=== PATIENT | female | born 1935 | race Caucasian/White ===

== ENCOUNTER 2019-05-15 09:15 | Inpatient (IN) | payer OTHER, MEDICAID ==
[~2019-05-15] VITALS: Ht 152.4 cm; Wt 52.6 kg
[2019-05-15 09:20] VITALS: BP_SYST 147
--- NOTE | 2019-05-15 09:25 | NUR ---
Patient to ER bed 7 to gown for evaluation. Side rails up. Report given to YANCI VACA.
--- NOTE | 2019-05-15 09:34 | NUR ---
ER Dr. Kan at bedside examining patient.
[2019-05-15] MEDS ORDERED: NS 500 ML IV ONE (09:45)
--- NOTE | 2019-05-15 09:45 | NUR ---
Pt complaining of n/v accompanied by abdominal pain 8/10 and dizziness for 4 days. Pt is AA/O x 4, speaks Welsh, and is cooperative.
[2019-05-15] MEDS ORDERED: ONDANSETRON HCL 4 MG/2 ML VIAL IVP ONE (10:15)
[2019-05-15] MEDS ORDERED: MORPHINE 2 MG/ML INJ. SYRINGE IVP ONE (10:15)
[2019-05-15] MEDS ORDERED: PANTOPRAZOLE SODIUM 40 MG/VIAL (PROTONIX) IVP ONE (10:15)
[2019-05-15 11:02] LABS: BASOPHILS % (AUTO) 0.4 % (0.0-2.0); EOSINOPHILS % (AUTO) 0.3 % (0.0-4.0); HEMATOCRIT 34.2 % (36-48); HEMOGLOBIN 12.1 g/dL (12.0-16.0); LYMPHOCYTES # (AUTO) 0.9 K/uL (1.0-5.5); LYMPHOCYTES % (AUTO) 12.3 % (20.5-51.5); MEAN CORPUSCULAR HEMOGLOBIN 31 pg (27-31); MEAN CORPUSCULAR HGB CONC 35 % (32-36); MEAN CORPUSCULAR VOLUME 89 fL (79.0-98.0); MONOCYTES # (AUTO) 0.6 K/uL (0.0-1.0); MONOCYTES % (AUTO) 7.6 % (1.7-9.3); NEUTROPHILS # (AUTO) 5.8 K/uL (1.8-7.7); NEUTROPHILS % (AUTO) 79.4 % (40.0-70.0); PLATELET COUNT (AUTO) 262 K/uL (130-430); RED BLOOD CELL COUNT(AUTO) 3.85 MIL/uL (4.2-6.2); RED CELL DISTRIBUTION WIDTH 14.1 % (9.0-15.0); WHITE BLOOD COUNT (AUTO) 7.3 K/uL (4.8-10.8)
[2019-05-15] MEDS ORDERED: MORPHINE 2 MG/ML INJ. SYRINGE ONE (11:11)
[2019-05-15 11:13] LABS: ANION GAP 3 (5-15); CALCIUM 8.7 mg/dL (8.4-11.0); CREATININE 1.27 mg/dL (0.55-1.30); GLUCOSE 128 mg/dL (70-99); SODIUM SERUM 120 mmol/L (136-145); UREA NITROGEN, BLOOD 14 mg/dL (8-21)
[2019-05-15 11:14] LABS: PROTHROMBIN TIME 9.7 SECS (9.5-12.5)
[2019-05-15 11:29] LABS: ALANINE AMINOTRANSFERASE 25 U/L (12-78); ALBUMIN 3.3 g/dL (3.4-4.8); ASPARTATE AMINOTRANSFERASE 32 U/L (10-37); LIPASE 216 U/L (73-393); TOTAL BILIRUBIN 0.7 mg/dL (0.0-1.0)
[2019-05-15] MEDS ORDERED: KCL 20 mEq in 100 mL (PREMIX) 100 ML IV ONE (11:30)
[2019-05-15] MEDS ORDERED: ASPIRIN 325 MG TABLET PO ONE (11:30)
[2019-05-15] MEDS ORDERED: NACL 0.9% 1,000 ML IV ONE (11:30)
[2019-05-15] MEDS ORDERED: KCL 10 mEq in 50 mL (PREMIX) 50 ML IV ONE (11:30)
[2019-05-15 11:31] LABS: CHLORIDE 80 mmol/L (98-107)
[2019-05-15 12:22] LABS: BILIRUBIN,URINE NEGATIVE (NEGATIVE); CLARITY/URINE CLEAR (CLEAR); COLOR,URINE YELLOW (YELLOW); GLUCOSE,URINE NEGATIVE (NEGATIVE); KETONES,URINE NEGATIVE (NEGATIVE); LEUKOCYTE ESTERASE ,URINE TRACE (NEGATIVE); NITRITE, URINE NEGATIVE (NEGATIVE); PROTEIN URINE 2+ (NEGATIVE); UROBILINOGEN,URINE 0.2 (0.2-1.0)
--- NOTE | 2019-05-15 12:25 | NUR ---
Potassium Chloride 10mEq/50mL IVPB administered @ 50mL/hr. Pt assisted to position of comfort.
[2019-05-15 12:27] LABS: BLOOD, URINE TRACE (NEGATIVE)
[2019-05-15 12:37] LABS: BACTERIA,URINE RARE /HPF (None Seen)
[2019-05-15] MEDS ORDERED: LEVOFLOXACIN 500 MG/D5W 100 ML IV ONE (12:45)
[2019-05-15] MEDS ORDERED: hydrALAZINE HCL 20 MG/ML VIAL IVP ONE (13:00)
--- NOTE | 2019-05-15 13:01 | NUR ---
Dr. Scruggs (admitting MD) at bedside
[2019-05-15] MEDS ORDERED: LEVO88TA5 PO (13:09)
[2019-05-15] MEDS ORDERED: ONDA4TAB5 PO (13:09)
[2019-05-15] MEDS ORDERED: HYDR25TA4 PO (13:09)
[2019-05-15] MEDS ORDERED: PRO40 PO (13:09)
[2019-05-15] MEDS ORDERED: AMLO5TAB4 PO (13:09)
--- NOTE | 2019-05-15 13:23 | NUR ---
ADMISSION NOTE Received patient from ER via gurney. Patient admitted with diagnosis of HYPONATREMIA. Patient is awake, alert, oriented X 3. Patient oriented to hospital room, call light, toileting, pain management and safety-teach back done. Patient informed that AZAM will be HER nurse and that their room number is 111A. Personal belongings checked and Belongings List documented. Call light within reach.
[2019-05-15] MEDS ORDERED: cefTRIAXone 1 GM in D5W 50 ML IV ONE (13:30)
[2019-05-15] MEDS ORDERED: ONDANSETRON 4 MG ODT TAB PO SCH (13:30)
[2019-05-15] MEDS ORDERED: FAMOTIDINE PF 20 MG/2 ML VIAL IVP ONE (13:30)
--- NOTE | 2019-05-15 13:30 | NUR ---
opening note Patient resting in bed at this time, A/ox4, no complaints of pain. No SOB. Iv patent, intact, and infusing fluids as ordered. no adverse side effects. On safety and aspiration precautions, HOB kept elevated, bed alarm on, 3 side rails up, call light within reach. patient in stable condition. Will continue to monitor.
[2019-05-15 13:34] VITALS: BP_SYST 163
--- NOTE | 2019-05-15 13:35 | NUR ---
CONSULTATION PAGED REASON FOR CONSULTATION:COLITIS WAS CONSULT CALLED?Y PERSON WHO WAS NOTIFIED:RASHI CONSULTING PHYSICIAN:VALERIE HEARD ( RESTAURANT CREW PERSON) GLUE DRIER OPERATOR SPECIALTY:GI GLUE DRIER OPERATOR PHONE NUMBER:[phone] ORDERING PHYSICIAN:ARVIND CASILLAS
--- NOTE | 2019-05-15 13:37 | NUR ---
CONSULTATION PAGED REASON FOR CONSULTATION:ELEVATED TROPNONIN WAS CONSULT CALLED?Y PERSON WHO WAS NOTIFIED:KARENA CONSULTING PHYSICIAN:SABRINA TAVARES ACCOUNT ADMINISTRATOR SPECIALTY:CARDIO ACCOUNT ADMINISTRATOR PHONE NUMBER:[phone] ORDERING PHYSICIAN:[facility]
--- NOTE | 2019-05-15 14:00 | NUR ---
Patient will be admitted to care of Dr. Scruggs. Admitted to Telemetry unit, room 111A. Belongings list completed. Summary report printed. Pt transported on cardiac rehabilitation specialist with two nurses presentr at all time. SBAR report endorsed to NOLA Roa at bedside.
[2019-05-15] MEDS: ONDANSETRON HCL 4 MG/2 ML VIAL IVP PRN (14:31)
[2019-05-15] MEDS: POTASSIUM CHLORIDE 30 MEQ in NACL 0.9% 1,000 ML IV SCH (14:31)
--- NOTE | 2019-05-15 14:31 | NUR ---
nausea patient noted with nausea/ vomiting x 1, 30cc yellow. No aspiration noted. No complaints of pain. Zofran given as ordered. no adverse side effects noted.
--- NOTE | 2019-05-15 15:00 | NUR ---
Ambulating Assisted patient to the restroom and back to bed, patient noted with weakness, but steady gait. No complaints of pain.
[2019-05-15 16:45] VITALS: BP_SYST 158
--- NOTE | 2019-05-15 17:30 | NUR ---
Rounds Patient sitting up in bed at this time, eating dinner, tolerating well. No nausea, no vomiting noted. no complaints of abdominal pain at this time.
--- NOTE | 2019-05-15 18:21 | NUR ---
Closing note Patient resting in bed at this time, A/ox4, no complaints of pain. No SOB. Iv patent, intact, and infusing fluids as ordered. no adverse side effects. On safety and aspiration precautions, HOB kept elevated, bed alarm on, 3 side rails up, call light within reach. patient in stable condition. All needs met.
--- NOTE | 2019-05-15 19:35 | NUR ---
OPENING NOTES Patient is resting, no signs of acute respiratory distress, family at bedside. IVF running, dressings c/d/i. Call light within reach, bed alarm on, bed at lowest position. Will continue to monitor.
[2019-05-15] MEDS: FAMOTIDINE PF 20 MG/2 ML VIAL IVP SCH (22:07)
[2019-05-15] MEDS: hydrALAZINE HCL 20 MG/ML VIAL IVP PRN (22:27)
[2019-05-16] MEDS: METOCLOPRAMIDE HCL 10 MG/2 ML VIAL IVP SCH ×5 (00:05→23:10)
--- NOTE | 2019-05-16 00:28 | NUR ---
Paged Dr. Ocampo [phone] s/w Maddi
[2019-05-16 00:34] VITALS: BP_SYST 148
--- NOTE | 2019-05-16 02:10 | NUR ---
Patient is asleep, no signs of acute respiratory distress. Will continue to monitor.
[2019-05-16] MEDS: POTASSIUM CHLORIDE 30 MEQ in NACL 0.9% 1,000 ML IV SCH (03:00)
[2019-05-16] MEDS: MORPHINE 2 MG/ML INJ. SYRINGE IVP PRN ×2 (03:05→18:59)
--- NOTE | 2019-05-16 04:00 | NUR ---
Patient provided PRN pain medication for pain of 9/10 of the head. Patient has no nausea at this time. Will continue to monitor.
--- NOTE | 2019-05-16 04:22 | NUR ---
CALLED BACK: Dr. Ocampo called back and informed about 3rd troponin went up to 0.108; no c/o chest pain or discomfort. No sob. Per MD, no orders at this time.
[2019-05-16] MEDS: LEVOTHYROXINE SODIUM 0.088 MG TABLET PO SCH (06:52)
[2019-05-16 07:19] LABS: BASOPHILS % (AUTO) 0.3 % (0.0-2.0); EOSINOPHILS % (AUTO) 0.2 % (0.0-4.0); HEMATOCRIT 33.4 % (36-48); HEMOGLOBIN 11.7 g/dL (12.0-16.0); LYMPHOCYTES # (AUTO) 1.4 K/uL (1.0-5.5); LYMPHOCYTES % (AUTO) 19.4 % (20.5-51.5); MEAN CORPUSCULAR HEMOGLOBIN 32 pg (27-31); MEAN CORPUSCULAR HGB CONC 35 % (32-36); MEAN CORPUSCULAR VOLUME 90 fL (79.0-98.0); MONOCYTES # (AUTO) 0.6 K/uL (0.0-1.0); MONOCYTES % (AUTO) 8.4 % (1.7-9.3); NEUTROPHILS # (AUTO) 5.3 K/uL (1.8-7.7); NEUTROPHILS % (AUTO) 71.7 % (40.0-70.0); PLATELET COUNT (AUTO) 246 K/uL (130-430); RED BLOOD CELL COUNT(AUTO) 3.71 MIL/uL (4.2-6.2); RED CELL DISTRIBUTION WIDTH 14.8 % (9.0-15.0); WHITE BLOOD COUNT (AUTO) 7.3 K/uL (4.8-10.8)
--- NOTE | 2019-05-16 07:25 | NUR ---
Endorsed care and provided SBAR to NOLA Salinas. All needs met throughout shift. Safety precautions in place.
--- NOTE | 2019-05-16 07:45 | NUR ---
OPENING NOTE RECEIVED PATIENT AWAKE IN BED. ALERT AND ORIENTED. DENIES ANY PAIN. ROOM AIR. NO ACUTE DISTRESS. NO SOB. RESPIRATION EVEN AND UNLABORED. SKIN WARM AND DRY TO TOUCH. IV INTACT AND PATENT. BED IN LOW AND LOCKED POSITION. SIDERAIL UPX3. ALL NEEDS MET. CONT TO MONITOR.
[2019-05-16 07:55] LABS: ALANINE AMINOTRANSFERASE 21 U/L (12-78); ALBUMIN 2.7 g/dL (3.4-4.8); ANION GAP 5 (5-15); ASPARTATE AMINOTRANSFERASE 21 U/L (10-37); CALCIUM 7.6 mg/dL (8.4-11.0); CHLORIDE 89 mmol/L (98-107); CREATININE 1.08 mg/dL (0.55-1.30); FREE T4 (FREE THYROXINE) 1.6 ng/dl (0.8-1.5); GLUCOSE 115 mg/dL (70-99); LIPASE 177 U/L (73-393); PHOSPHORUS 2.8 mg/dL (2.7-4.5); POTASSIUM 3.6 mmol/L (3.5-5.1); SODIUM SERUM 123 mmol/L (136-145); THYROID STIMULATING HORMONE 3.07 uIu/mL (0.36-3.74); TOTAL BILIRUBIN 0.5 mg/dL (0.0-1.0); UREA NITROGEN, BLOOD 9 mg/dL (8-21)
[2019-05-16 08:00] VITALS: BP_SYST 153
[2019-05-16 09:00] LABS: CHOLESTEROL 209 mg/dL (<200); HDL CHOLESTEROL 80 mg/dL (>55); LDL CHOLESTEROL 118 mg/dL (<100); TRIGLYCERIDES 44 mg/dL (30-150)
[2019-05-16] MEDS: PANTOPRAZOLE SODIUM 40 MG TAB PO SCH (09:19)
[2019-05-16] MEDS: amLODIPine BESYLATE 5 MG TABLET PO SCH (09:19)
[2019-05-16] MEDS: FAMOTIDINE PF 20 MG/2 ML VIAL IVP SCH ×2 (09:19→20:51)
[2019-05-16] MEDS: cefTRIAXone 1 GM in D5W 50 ML IV SCH (09:19)
--- NOTE | 2019-05-16 09:20 | NUR ---
MEDS ADMINISTERED MEDS ORDERED, NILSA WELL. TEACHING DONE ON MEDICATION AND ASE. DAUGHTER AT BEDSIDE
--- NOTE | 2019-05-16 10:30 | NUR ---
SEEN AND EXAMINED BY
[2019-05-16] MEDS: NS 500 ML IV SCH ×4 (10:52→22:28)
[2019-05-16] MEDS: ONDANSETRON HCL 4 MG/2 ML VIAL IVP PRN (10:54)
--- NOTE | 2019-05-16 11:00 | NUR ---
NOTE PATIENT NAUSEOUS; ZOFRAN ADMINISTERED ORDERED. NILSA WELL. CONT TO MONITOR. FAMILY AT BEDSIDE
--- NOTE | 2019-05-16 11:40 | NUR ---
ROUNDS Pt is resting in bed with both eyes closed, with visible chest rise and fall with non-labored breathing noted. IVF infusing well. No signs of acute distress noted. Family at bedside. Safety precautions in place and call light with pt. Will continue to monitor. Addendum: 05/17/19 at 0121 by Alayna Brown RN WRONG ENTRY, PLS DISREGARD.
[2019-05-16 12:26] VITALS: BP_SYST 162
--- NOTE | 2019-05-16 13:30 | NUR ---
NOTE ASSISTED PATIENT TO BATHROOM. ALL NEEDS MET. CONT TO MONITOR
--- NOTE | 2019-05-16 15:00 | NUR ---
SEEN AND EXAMINED BY AT BEDSIDE. AWARE PATIENT HAS A TEMP OF 99.8. RECEIVED NEW ORDER FOR TYLENOL FOR FEVER; OKAY TO GIVE TYLENOL.
[2019-05-16] MEDS: ACETAMINOPHEN 325 MG TABLET PO PRN (15:48)
[2019-05-16] MEDS ORDERED: GASTROGRAFIN 120 ML ONE (15:58)
[2019-05-16 16:45] VITALS: BP_SYST 154
--- NOTE | 2019-05-16 17:00 | NUR ---
SMALL BOWEL XRAY AT BEDSIDE
--- NOTE | 2019-05-16 19:00 | NUR ---
CLOSING NOTE PATIENT STABLE. AWAKE IN BED. PAIN MED ADMINISTERED FOR SEVERE PAIN TO ABDOMEN; NILSA WELL. VITAL SIGN STABLE. NO ACUTE DISTRESS. NO SOB. RESPIRATION EVEN AND UNLABORED. SKIN WARM AND DRY TO TOUCH. IV INTACT AND PATENT; NILSA IVF. BED IN LOW AND LOCKED POSITION. SIDERAIL UPX2. FAMILY AT BEDSIDE. ALL NEEDS MET. CONT TO MONITOR
--- NOTE | 2019-05-16 19:20 | NUR ---
OPENING NOTES Pt and endorsement received from day shift nurse. Pt is AAOx4, lying in bed. Family at bedside. Pt on IVF with NS at 125ml/hr and infusing well on left AC G20. No complains of pain or discomfort at this time. No signs of acute distress or SOB noted. Encouraged to use call light when needed. Safety precautions in place with 3 side rails up, wheels locked, bed alarm on and in lowest level. Call light with pt. Will continue to monitor.
[2019-05-16 20:47] VITALS: BP_SYST 146
--- NOTE | 2019-05-16 21:00 | NUR ---
MED PASS Due med given. No complains of pain and no signs of acute distress noted. IVF infusing well. Stool sample collected and will sent to lab. Family at bedside. Safety precautions in place and call light with pt. Will continue to monitor.
--- NOTE | 2019-05-16 23:40 | NUR ---
ROUNDS Pt is resting in bed with both eyes closed, with visible chest rise and fall with non-labored breathing noted. IVF infusing well. No signs of acute distress noted. Family at bedside. Safety precautions in place and call light with pt. Will continue to monitor.
[2019-05-17 01:03] VITALS: BP_SYST 152
[2019-05-17] MEDS: NS 500 ML IV SCH ×2 (02:22→06:07)
--- NOTE | 2019-05-17 02:30 | NUR ---
ROUNDS Perineal care rendered by SAM Jordan. No complains of pain and no signs of acute distress noted. IVF infusing well. Family at bedside. Safety precautions in place and call light with pt. Will continue to monitor.
--- NOTE | 2019-05-17 04:28 | NUR ---
ROUNDS Pt is resting in bed with both eyes closed, with visible chest rise and fall with non-labored breathing noted. Pt is easily arousable. IVF infusing well. No signs of acute distress noted. No needs at this time. Family at bedside. Safety precautions in place and call light with pt. Will continue to monitor.
[2019-05-17] MEDS: METOCLOPRAMIDE HCL 10 MG/2 ML VIAL IVP SCH ×4 (06:07→23:02)
[2019-05-17] MEDS: LEVOTHYROXINE SODIUM 0.088 MG TABLET PO SCH (06:07)
[2019-05-17 07:06] LABS: BASOPHILS % (AUTO) 0.5 % (0.0-2.0); EOSINOPHILS # (AUTO) 0.1 K/uL (0.0-0.4); HEMATOCRIT 28.6 % (36-48); LYMPHOCYTES # (AUTO) 1.1 K/uL (1.0-5.5); LYMPHOCYTES % (AUTO) 17.7 % (20.5-51.5); MEAN CORPUSCULAR HEMOGLOBIN 32 pg (27-31); MEAN CORPUSCULAR HGB CONC 35 % (32-36); MEAN CORPUSCULAR VOLUME 91 fL (79.0-98.0); MONOCYTES # (AUTO) 0.5 K/uL (0.0-1.0); MONOCYTES % (AUTO) 7.7 % (1.7-9.3); NEUTROPHILS # (AUTO) 4.5 K/uL (1.8-7.7); NEUTROPHILS % (AUTO) 73.1 % (40.0-70.0); PLATELET COUNT (AUTO) 215 K/uL (130-430); RED BLOOD CELL COUNT(AUTO) 3.16 MIL/uL (4.2-6.2); RED CELL DISTRIBUTION WIDTH 14.7 % (9.0-15.0); WHITE BLOOD COUNT (AUTO) 6.1 K/uL (4.8-10.8)
[2019-05-17 07:17] LABS: ALANINE AMINOTRANSFERASE 16 U/L (12-78); ALBUMIN 2.3 g/dL (3.4-4.8); ANION GAP 7 (5-15); ASPARTATE AMINOTRANSFERASE 21 U/L (10-37); CALCIUM 7.2 mg/dL (8.4-11.0); CHLORIDE 98 mmol/L (98-107); GLUCOSE 104 mg/dL (70-99); SODIUM SERUM 132 mmol/L (136-145); TOTAL BILIRUBIN 0.3 mg/dL (0.0-1.0); UREA NITROGEN, BLOOD 8 mg/dL (8-21)
[2019-05-17 07:39] LABS: POTASSIUM 2.6 mmol/L (3.5-5.1)
--- NOTE | 2019-05-17 07:45 | NUR ---
Initial notes- pt in bed, awake. family at bedside. denies any pain or discomfort. IvF infusing well. Family Update plan of care. Will continue to monitor.
[2019-05-17 08:00] VITALS: BP_SYST 142
--- NOTE | 2019-05-17 08:03 | NUR ---
PAGED PAGED ARVIND CASILLAS AT [phone] SPOKE WITH NABOR.
[2019-05-17] MEDS: cefTRIAXone 1 GM in D5W 50 ML IV SCH (08:35)
[2019-05-17] MEDS: FAMOTIDINE PF 20 MG/2 ML VIAL IVP SCH ×2 (08:35→20:00)
[2019-05-17] MEDS: amLODIPine BESYLATE 5 MG TABLET PO SCH (08:36)
[2019-05-17] MEDS: PANTOPRAZOLE SODIUM 40 MG TAB PO SCH (08:36)
--- NOTE | 2019-05-17 08:44 | NUR ---
2ND PAGE OUT TO ARVIND SY AT [phone] SPOKE WITH VICTOR MANUEL.
[2019-05-17] MEDS ORDERED: POTASSIUM CHLORIDE 20 MEQ TAB.PRT.SR PO ONE (09:00)
--- NOTE | 2019-05-17 09:21 | NUR ---
Pt tolerated clear diet, denies any vomiting and abdominal pain. has loose stools at night from the contrast for the small bowel series. will monitor and advance diet as tolerated as ordered
[2019-05-17] MEDS: KCL 20 mEq in 100 mL (PREMIX) 100 ML IV SCH ×2 (09:27→11:40)
[2019-05-17] MEDS: NACL 0.9% 1,000 ML IV SCH (11:40)
[2019-05-17] MEDS: hydrALAZINE HCL 20 MG/ML VIAL IVP PRN (11:41)
[2019-05-17 12:00] VITALS: BP_SYST 162
[2019-05-17] MEDS ORDERED: CHOLECALCIFEROL (VITAMIN D3) 2,000 UNIT TABLET PO ONE (12:30)
[2019-05-17] MEDS ORDERED: ENOXAPARIN SODIUM 40 MG/0.4 ML SYRINGE SUBCUT ONE (12:30)
[2019-05-17] MEDS ORDERED: MULTIVITS,CA,MINERALS/IRON/FA 1 TABLET PO ONE (12:30)
[2019-05-17] MEDS ORDERED: MAGNESIUM SULFATE 50 ML IV ONE (12:30)
[2019-05-17] MEDS ORDERED: ASPIRIN 81 MG TABLET(ECOTRIN) PO ONE (12:30)
--- NOTE | 2019-05-17 13:00 | NUR ---
Patient sleeping, family at bedside. Seen by Dr. Scruggs.
[2019-05-17 14:11] VITALS: BP_SYST 134
[2019-05-17] MEDS: POTASSIUM CHLORIDE 20 MEQ TAB.PRT.SR PO SCH ×2 (15:15→20:00)
--- NOTE | 2019-05-17 15:41 | NUR ---
IV was infiltrated on the left AC, started a new one on the right forearm no.22 x1 attempt. Pt tolerated well. Family at bedside.
[2019-05-17 16:50] VITALS: BP_SYST 133
--- NOTE | 2019-05-17 18:35 | NUR ---
closing notes- Eating dinner, family at bedside. Tolerating soft diet. Still having loose stools. Seen by Dr. Barrett. Denies any pain or discomfort. All needs meet. will endorse.
--- NOTE | 2019-05-17 19:25 | NUR ---
OPENING NOTES Pt and endorsement received from day shift nurse. Pt is AAOx4, lying in bed. Family at bedside. Pt on IVF with NS at 50ml/hr and infusing well on right forearm G22. No complains of pain or discomfort at this time. No signs of acute distress or SOB noted. Encouraged to use call light when needed. Safety precautions in place with 3 side rails up, wheels locked, bed alarm on and in lowest level. Call light with pt. Will continue to monitor.
[2019-05-17 19:54] VITALS: BP_SYST 144
--- NOTE | 2019-05-17 20:00 | NUR ---
MED PASS All due meds given and pt tolerated well. No complains of pain and no signs of acute distress noted. IVF infusing well. Family at bedside. Safety precautions in place and call light with pt. Will continue to monitor.
--- NOTE | 2019-05-17 23:02 | NUR ---
ROUNDS Pt refused Reglan, states she doesn't feel nauseous. Educated pt to call the nurse if she feels nauseous, pt verbalized understanding. No complains of pain and no signs of acute distress noted. Family at bedside. Will continue to monitor.
[2019-05-18] MEDS: NACL 0.9% 1,000 ML IV SCH ×2 (01:40→21:02)
[2019-05-18 01:41] VITALS: BP_SYST 150
--- NOTE | 2019-05-18 02:23 | NUR ---
ROUNDS Pt is resting in bed with both eyes closed, with visible chest rise and fall with non-labored breathing noted. No signs of acute distress noted. No needs at this time. Daughter at bedside. Safety precautions in place and call light with pt. Will continue to monitor.
--- NOTE | 2019-05-18 04:30 | NUR ---
ROUNDS Pt is resting in bed with both eyes closed, with visible chest rise and fall with non-labored breathing noted. Pt is easily arousable. Pt is stable and no signs of acute distress noted. IVF infusing well. Safety precautions in place and call light with pt. Will continue to monitor.
[2019-05-18] MEDS: METOCLOPRAMIDE HCL 10 MG/2 ML VIAL IVP SCH ×2 (05:12→12:00)
[2019-05-18] MEDS: LEVOTHYROXINE SODIUM 0.088 MG TABLET PO SCH (06:10)
[2019-05-18 06:17] LABS: BASOPHILS % (AUTO) 0.9 % (0.0-2.0); EOSINOPHILS # (AUTO) 0.1 K/uL (0.0-0.4); EOSINOPHILS % (AUTO) 2.2 % (0.0-4.0); HEMOGLOBIN 10.8 g/dL (12.0-16.0); LYMPHOCYTES # (AUTO) 1.5 K/uL (1.0-5.5); LYMPHOCYTES % (AUTO) 27.3 % (20.5-51.5); MEAN CORPUSCULAR HEMOGLOBIN 32 pg (27-31); MEAN CORPUSCULAR HGB CONC 35 % (32-36); MEAN CORPUSCULAR VOLUME 91 fL (79.0-98.0); MONOCYTES # (AUTO) 0.5 K/uL (0.0-1.0); MONOCYTES % (AUTO) 9.6 % (1.7-9.3); NEUTROPHILS # (AUTO) 3.3 K/uL (1.8-7.7); PLATELET COUNT (AUTO) 251 K/uL (130-430); RED BLOOD CELL COUNT(AUTO) 3.39 MIL/uL (4.2-6.2); RED CELL DISTRIBUTION WIDTH 14.7 % (9.0-15.0); WHITE BLOOD COUNT (AUTO) 5.4 K/uL (4.8-10.8)
--- NOTE | 2019-05-18 06:27 | NUR ---
CLOSING NOTES Pt is resting in bed with both eyes closed, with visible chest rise and fall with non-labored breathing noted. IVF infusing well. No complains of pain or discomfort at this time. No signs of acute distress or SOB noted. All needs attended throughout the shift. Safety precautions maintained with 3 side rails up, wheels locked, bed alarm on and in lowest level. Call light with pt. Daughter at bedside. Will endorse to day shift nurse.
[2019-05-18 06:30] LABS: ALANINE AMINOTRANSFERASE 19 U/L (12-78); ALBUMIN 2.6 g/dL (3.4-4.8); ANION GAP 5 (5-15); ASPARTATE AMINOTRANSFERASE 21 U/L (10-37); CALCIUM 7.5 mg/dL (8.4-11.0); CHLORIDE 98 mmol/L (98-107); CREATININE 0.96 mg/dL (0.55-1.30); GLUCOSE 94 mg/dL (70-99); POTASSIUM 3.5 mmol/L (3.5-5.1); SODIUM SERUM 130 mmol/L (136-145); TOTAL BILIRUBIN 0.3 mg/dL (0.0-1.0); UREA NITROGEN, BLOOD 4 mg/dL (8-21)
--- NOTE | 2019-05-18 06:33 | NUR ---
CRITICAL LAB Spoke with Darryl from lab, pt's Troponin is 0.132ng/mL. Will page cardio doctor.
--- NOTE | 2019-05-18 06:40 | NUR ---
SPOKE WITH DR. OCAMPO Spoke with Dr. Ocampo regarding pt's Troponin of 0.132ng/mL and also told him pt is not complaining of chest pain. Dr. Ocampo said "okay, thank you." I asked him if he has any orders and he said "no."
--- NOTE | 2019-05-18 07:28 | NUR ---
OPENING NOTE Patient resting in the bed. No acute distress. AAO x 4. Hebrew speaking. Family at bedside helped to translate. Denied of pain. Skin warm and dry to touch. IV intact to RFA, no redness, no selling, no drainage. On NS at 50ml/hr, infusing well. Discussed the safety issue, use call light when needs help, and plan of care, verbally understanding. Call light within reached. Will continue to monitor.
[2019-05-18 07:55] VITALS: BP_SYST 158
[2019-05-18] MEDS: cefTRIAXone 1 GM in D5W 50 ML IV SCH (08:55)
[2019-05-18] MEDS: FAMOTIDINE PF 20 MG/2 ML VIAL IVP SCH ×2 (08:55→21:03)
[2019-05-18] MEDS: MULTIVITS,CA,MINERALS/IRON/FA 1 TABLET PO SCH (08:56)
[2019-05-18] MEDS: POTASSIUM CHLORIDE 20 MEQ TAB.PRT.SR PO SCH ×3 (08:56→21:04)
[2019-05-18] MEDS: CHOLECALCIFEROL (VITAMIN D3) 2,000 UNIT TABLET PO SCH (08:57)
[2019-05-18] MEDS: PANTOPRAZOLE SODIUM 40 MG TAB PO SCH (08:57)
[2019-05-18] MEDS: amLODIPine BESYLATE 5 MG TABLET PO SCH (08:57)
[2019-05-18] MEDS: ASPIRIN 81 MG TABLET(ECOTRIN) PO SCH (08:58)
[2019-05-18] MEDS: ENOXAPARIN SODIUM 40 MG/0.4 ML SYRINGE SUBCUT SCH (08:59)
--- NOTE | 2019-05-18 09:00 | NUR ---
SCHEDULE MED Patient tolerated well on AM schedule med. No acute distress. Family at bedside. Safety measure maintained. Call light within reached. Bed locked in low position, side rails up, bed alarm on. Continue to monitor.
[2019-05-18] MEDS: hydrALAZINE HCL 20 MG/ML VIAL IVP PRN ×2 (10:52→23:47)
--- NOTE | 2019-05-18 10:54 | NUR ---
TA=965/92 Hydralazine 10mg IVP given as ordered. No acute distress. denied of headache/dizziness/chest discomfort. Family at bedside. Safety measure maintained. Call light within reached. Bed locked in low position, side rails up, bed alarm on. Continue to monitor.
--- NOTE | 2019-05-18 11:20 | NUR ---
RECHECKED LC=207/87 Patient resting in the bed. No acute distress. Family at bedside. Safety measure maintained. Call light within reached. Bed locked in low position, side rails up, bed alarm on. Continue to monitor.
[2019-05-18 11:32] VITALS: BP_SYST 162
--- NOTE | 2019-05-18 14:15 | NUR ---
SEEN AND EXAMINED BY DR. KAPOOR [facility].
[2019-05-18 15:07] VITALS: BP_SYST 130
--- NOTE | 2019-05-18 17:09 | NUR ---
SEEN AND EXAMINED BY DMITRY CORDOVA.
--- NOTE | 2019-05-18 18:57 | NUR ---
CLOSING NOTE Patient resting in the bed. No acute distress. No c/o pain. Skin warm and dry to touch. IV intact to RFA, no redness, no selling, no drainage. On NS at 50ml/hr, infusing well. All needs met. Family at bedside all the time. Safety measure maintained. Call light within reached. Bed locked in low position, side rails up, bed alarm on. Will endorse to night nurse.
--- NOTE | 2019-05-18 20:00 | NUR ---
Initial note: Received report from dayssaulft RN. Patient is awake in bed, no acute distress. Even and unlabored breathing on room air. IV fluids infusing to right FA, no infiltration noted. Family members present at bedside. Call light is with patient. Safety, fall precautions in place. Will continue with plan of care.
[2019-05-18 20:50] VITALS: BP_SYST 165
[2019-05-18] MEDS: METOPROLOL TARTRATE 25 MG TABLET PO SCH (21:04)
--- NOTE | 2019-05-18 22:28 | NUR ---
Rounds: Patient is awake in bed, no acute distress. Even and unlabored breathing. Tolerating room air. IV fluids infusing per MD order. Family members present at bedside. Call light with patient. Will continue to monitor.
[2019-05-19 00:24] VITALS: BP_SYST 161
--- NOTE | 2019-05-19 00:51 | NUR ---
Elevated BP: Made aware by SAM Ngyuen regarding patient's elevated BP of 161/101. Apresoline 10 MG IVP administered as indicated per MD order. Upon reassessment, patient's BP was 145/92. Medication effective. Call light with patient. Will continue to monitor.
--- NOTE | 2019-05-19 03:35 | NUR ---
Rounds: Patient is resting in bed, no acute distress. Tolerating room air. IV fluids infusing per MD order. Call light with patient. Will continue to monitor.
--- NOTE | 2019-05-19 06:27 | NUR ---
Closing note: Patient is resting in bed, no acute distress. IV fluids infusing per MD order. Family member present at bedside. All needs met. Safety, fall precautions observed. Hourly rounding performed throughout shift. Will endorse to dayshift RN.
[2019-05-19] MEDS: LEVOTHYROXINE SODIUM 0.088 MG TABLET PO SCH (06:43)
[2019-05-19 06:59] LABS: BASOPHILS % (AUTO) 0.9 % (0.0-2.0); EOSINOPHILS # (AUTO) 0.1 K/uL (0.0-0.4); EOSINOPHILS % (AUTO) 1.4 % (0.0-4.0); HEMATOCRIT 34.6 % (36-48); HEMOGLOBIN 12.1 g/dL (12.0-16.0); LYMPHOCYTES # (AUTO) 1.9 K/uL (1.0-5.5); LYMPHOCYTES % (AUTO) 35.1 % (20.5-51.5); MEAN CORPUSCULAR HEMOGLOBIN 32 pg (27-31); MEAN CORPUSCULAR HGB CONC 35 % (32-36); MEAN CORPUSCULAR VOLUME 90 fL (79.0-98.0); MONOCYTES # (AUTO) 0.5 K/uL (0.0-1.0); NEUTROPHILS # (AUTO) 2.9 K/uL (1.8-7.7); NEUTROPHILS % (AUTO) 53.6 % (40.0-70.0); PLATELET COUNT (AUTO) 316 K/uL (130-430); RED BLOOD CELL COUNT(AUTO) 3.83 MIL/uL (4.2-6.2); RED CELL DISTRIBUTION WIDTH 15.1 % (9.0-15.0); WHITE BLOOD COUNT (AUTO) 5.5 K/uL (4.8-10.8)
[2019-05-19 07:09] LABS: ALANINE AMINOTRANSFERASE 20 U/L (12-78); ALBUMIN 2.8 g/dL (3.4-4.8); ANION GAP 7 (5-15); ASPARTATE AMINOTRANSFERASE 15 U/L (10-37); CALCIUM 8.3 mg/dL (8.4-11.0); CHLORIDE 96 mmol/L (98-107); CREATININE 1.01 mg/dL (0.55-1.30); GLUCOSE 95 mg/dL (70-99); POTASSIUM 4.1 mmol/L (3.5-5.1); SODIUM SERUM 127 mmol/L (136-145); TOTAL BILIRUBIN 0.4 mg/dL (0.0-1.0); UREA NITROGEN, BLOOD 9 mg/dL (8-21)
--- NOTE | 2019-05-19 07:50 | NUR ---
OPENING NOTE PATIENT AWAKE IN BED. ALERT AND ORIENTED. NO C/O PAIN AT THIS TIME. ROOM AIR. NO ACUTE DISTRESS. NO SOB. RESPIRATION EVEN AND UNLABORED. SKIN WARM AND DRY TO TOUCH. NILSA IVF. BED IN LOW AND LOCKED POSITION. SIDERAIL UPX3. DAUGHTER AT BEDSIDE. DISCUSSED PLAN OF CARE. ALL NEEDS MET. CONT TO MONITOR
--- NOTE | 2019-05-19 07:51 | NUR ---
SUPERVISOR KEYMODULE ASSEMBLY PAGED PAGED SABRINA TAVARES AT [phone] SPOKE WITH BABS.
[2019-05-19 08:00] VITALS: BP_SYST 147
--- NOTE | 2019-05-19 08:20 | NUR ---
SEEN AND EXAMINED BY AT BEDSIDE
[2019-05-19] MEDS: cefTRIAXone 1 GM in D5W 50 ML IV SCH (08:57)
[2019-05-19] MEDS: ASPIRIN 81 MG TABLET(ECOTRIN) PO SCH (08:57)
[2019-05-19] MEDS: FAMOTIDINE PF 20 MG/2 ML VIAL IVP SCH (08:57)
[2019-05-19] MEDS: MULTIVITS,CA,MINERALS/IRON/FA 1 TABLET PO SCH (08:58)
[2019-05-19] MEDS: METOPROLOL TARTRATE 25 MG TABLET PO SCH (08:58)
[2019-05-19] MEDS: POTASSIUM CHLORIDE 20 MEQ TAB.PRT.SR PO SCH (08:59)
[2019-05-19] MEDS: CHOLECALCIFEROL (VITAMIN D3) 2,000 UNIT TABLET PO SCH (08:59)
[2019-05-19] MEDS: amLODIPine BESYLATE 5 MG TABLET PO SCH (08:59)
[2019-05-19] MEDS: ACETAMINOPHEN 325 MG TABLET PO PRN (09:00)
[2019-05-19] MEDS: ENOXAPARIN SODIUM 40 MG/0.4 ML SYRINGE SUBCUT SCH (09:02)
--- NOTE | 2019-05-19 09:12 | NUR ---
meds ALL DUE MEDS ADMINISTERED, NILSA WELL. TEACHING DONE ON MEDICATION AND ASE.
--- NOTE | 2019-05-19 09:45 | NUR ---
PT SEEN AND EVALUATED BY PHYSICAL THERAPIST. PT RECOMMENDATION FOR PATIENT TO USE WALKER WHEN AMBULATING. WILL NOTIFY
--- NOTE | 2019-05-19 09:57 | NUR ---
Discharge Planning: VICE PRINCIPAL called genny to ask if family had any preference for a HH agency. Virgie Espinoza Acdaela, stated they did not. VICE PRINCIPAL notified her that she will be working on the D/C plan today and that pt will be D/C'd once the HH has been set up. VICE PRINCIPAL will keep genny informed. VICE PRINCIPAL fax'd the packet to agency, [facility] to Sharad Riddle at [phone]. After VICE PRINCIPAL fax'd packet, genny Mills called and asked if agency can send a Equ[place]an speaker as her aunt/pt speaks only Equ[place]an. VICE PRINCIPAL will request this of the agency once the fax confirmation comes in and she called agency. Addendum: 05/19/19 at 1042 by Bess HOOVER Sharad Riddle from [facility]. called back to state pt. was accepted for services. He asked that VICE PRINCIPAL just verify address was correct. VICE PRINCIPAL called genny, Ms. Garvin, had to leave a message asking her to call VICE PRINCIPAL back. VICE PRINCIPAL will inform her of the company that will be in touch and verify address once she calls back. VICE PRINCIPAL will remain available. Addendum: 05/19/19 at 1457 by Bess Lee VICE PRINCIPAL Discharge Planning: VICE PRINCIPAL received Dr. panda for pt. to receive a walker. VICE PRINCIPAL received info from with address where pt. will be going to, daughters home, Gene Garvin , residing at [address] [place] [address], [phone], ph. [phone]. VICE PRINCIPAL called [facility], spoke to Denise and shared address and additional Dr. panda. VICE PRINCIPAL will fax it to the [facility] at [phone]. Denise stated they can get pt. a walker as requested and send over a Equ[place] Guinean speaker.
[2019-05-19 11:25] VITALS: BP_SYST 152
--- NOTE | 2019-05-19 11:30 | NUR ---
NOTE PATIENT SITTING UP IN BED EATING A BANANA. NO ACUTE DISTRESS. NO SOB. RESPIRATION EVEN AND UNLABORED. FAMILY AT BEDSIDE
[2019-05-19] MEDS ORDERED: ASPI-1153 PO (13:24)
[2019-05-19] MEDS ORDERED: METO25TA6 PO (13:24)
--- NOTE | 2019-05-19 13:40 | NUR ---
SEEN AND EXAMINED BY AT BEDSIDE PATIENT IS CLEARED BY CARDIO AND OKAY FOR DISCHARGE PER MD
[2019-05-19 14:03] VITALS: BP_SYST 143
[2019-05-19] MEDS ORDERED: FLU VACC TS2019(65UP)/MF59C/PF 45 MCG/0.5 ML SYRINGE I.M. PRN (14:30)
--- NOTE | 2019-05-19 14:32 | NUR ---
DC Planning: The pt is dc to home with HH: accepted by [facility] at [phone].FWW will be delivered to home. Pt walks 100 feet min and contact guard assist. 2 dtrs and spouse at bedside to take pt home. Per dtrs; Gene and Jeri, the pt can hold their arms walking about 5 steps, no stair in to home. The pt is on RA with no sob with walking. The pt will be staying with Gene at address: [address] [place] [id number], tel [phone]. Gene speak Yoruba only. NOLA Salinas made aware.
--- NOTE | 2019-05-19 14:45 | NUR ---
TONY JEFFERS AT BEDSIDE SPEAKING TO PATIENT AND FAMILY. PER AURY WALKER WILL BE DELIVERED HOME AND HOME HEALTH WILL GET IN TOUCH WITH PATIENT TOMORROW.
--- NOTE | 2019-05-19 15:07 | NUR ---
D/C Patient Patient given medication reconciliation form and D/C instructions. Exit Care provided. Patient verbalized understanding. MD discussed with patient the results and treatment provided. Ambulatory with assist for discharge to home. Walker ordered and to be delivered to patients home. Patient in stable condition, ID band removed. IV catheter removed, intact and dressing applied, no active bleeding. Patient educated on pain management. All belongings sent with patient.
--- NOTE | 2019-05-20 11:19 | NUR ---
PHYSICAL THERAPY CO-SIGN The Physical Therapy Progress Notes documented by J2Ee Programmer have been reviewed. Reviewed/Co-Signed by: Terry Leggett PT Documentation Done by: SALAZAR CORONADO PTA Addendum: 05/20/19 at 1120 by Terry Leggett PT Amended: Links added.
--- NOTE | 2019-05-21 12:07 | NUR ---
Discharge Planning: TENISHA received a call from patients daughter [facility] has not contacted her regarding scheduling appointment. DCP called [facility] and spoke to Samuel. CHUYP called daughter to give her the number to [facility] to speak to Samuel.
== END 2019-05-19 15:07 | disposition home health service (06) | DRG 280 ==
LOC: SED 09:15 → STU 12:51 → SMU 05-18 16:35
PROVIDERS: ADMIT Internal Medicine; ATTEND Internal Medicine
DX: I21.4 Non-ST elevation (NSTEMI) myocardial infarction (principal); E43 Unspecified severe protein-calorie malnutrition; N39.0 Urinary tract infection, site not specified; E87.1 Hypo-osmolality and hyponatremia; E87.2 Acidosis; K52.9 Noninfective gastroenteritis and colitis, unspecified; E87.6 Hypokalemia; E03.9 Hypothyroidism, unspecified; I10 Essential (primary) hypertension; K59.00 Constipation, unspecified; Z79.890 Hormone replacement therapy; Z90.49 Acquired absence of other specified parts of digestive tract; Z79.899 Other long term (current) drug therapy; Z88.8 Allergy status to other drugs, medicaments and biological substances; Z90.89 Acquired absence of other organs; Z87.11 Personal history of peptic ulcer disease
CPT/HCPCS: 36415; 70450-TC; 71045; 74250-TC; 80053; 80061; 81000-TC; 83605; 83690-TC; 83735-TC; 83880; 83930-TC; 83935-TC; 84100-TC; 84439; 84443-TC; 84484; 85025; 85610-TC; 85730-TC; 86710; 87040-TC; 87045-TC; 87046; 87086; 87177; 87230-TC; 89055; 93005; 93306; 96361; 96365; 96375; 97116-GP; 97530-GP; 99285; C9113; G0378; J0360; J0696; J1650; J2270; J2405; J2765; J3475; J3480; J3490; J7030; J7040; J7060; Q9963

== ENCOUNTER 2021-09-11 13:57 | Emergency (ER) | payer OTHER, MEDICAID ==
[~2021-09-11] VITALS: Ht 160 cm; Wt 59.0 kg
[~2021-09-11 13:57] MED LIST: AMLO5TAB4 PO; ASPI-1393 PO; LEVO88TA5 PO; METO25TA6 PO; ONDA4TAB5 PO; PRO40 PO
[2021-09-11 14:00] VITALS: BP_SYST 137
[2021-09-11] MEDS ORDERED: LEVO88TA5 PO (15:04)
[2021-09-11] MEDS ORDERED: AMLO5TAB92 PO (15:04)
[2021-09-11] MEDS ORDERED: LIP20 PO (15:04)
[2021-09-11] MEDS ORDERED: ASPI-1393 PO (15:04)
[2021-09-11] MEDS ORDERED: HYDR-4038 PO (15:04)
[2021-09-11] MEDS ORDERED: FERR-69 PO (15:04)
[2021-09-11] MEDS ORDERED: PRO40 PO (15:04)
[2021-09-11 16:12] LABS: BASOPHILS % (AUTO) 0.5 % (0.0-2.0); EOSINOPHILS # (AUTO) 0.1 K/uL (0.0-0.4); EOSINOPHILS % (AUTO) 0.8 % (0.0-4.0); HEMATOCRIT 37.7 % (36-48); HEMOGLOBIN 12.7 g/dL (12.0-16.0); LYMPHOCYTES # (AUTO) 1.8 K/uL (1.0-5.5); LYMPHOCYTES % (AUTO) 27.1 % (20.5-51.5); MEAN CORPUSCULAR HEMOGLOBIN 30 pg (27-31); MEAN CORPUSCULAR HGB CONC 34 % (32-36); MEAN CORPUSCULAR VOLUME 89 fL (79.0-98.0); MONOCYTES # (AUTO) 0.6 K/uL (0.0-1.0); MONOCYTES % (AUTO) 8.7 % (1.7-9.3); NEUTROPHILS # (AUTO) 4.1 K/uL (1.8-7.7); NEUTROPHILS % (AUTO) 62.9 % (40.0-70.0); PLATELET COUNT (AUTO) 215 K/uL (130-430); RED BLOOD CELL COUNT(AUTO) 4.25 MIL/uL (4.2-6.2); RED CELL DISTRIBUTION WIDTH 13.8 % (9.0-15.0); WHITE BLOOD COUNT (AUTO) 6.5 K/uL (4.8-10.8)
[2021-09-11 16:37] LABS: ANION GAP 8 (5-15); CALCIUM 7.7 mg/dL (8.4-11.0); CHLORIDE 97 mmol/L (98-107); CREATININE 1.21 mg/dL (0.55-1.30); GLUCOSE 111 mg/dL (70-99); POTASSIUM 3.5 mmol/L (3.5-5.1); SODIUM SERUM 135 mmol/L (136-145); UREA NITROGEN, BLOOD 15 mg/dL (8-21)
[2021-09-11 16:43] LABS: ALANINE AMINOTRANSFERASE 26 U/L (12-78); ALBUMIN 3.9 g/dL (3.4-4.8); ASPARTATE AMINOTRANSFERASE 27 U/L (10-37); TOTAL BILIRUBIN 0.3 mg/dL (0.0-1.0)
[2021-09-11 17:32] LABS: CREATINE KINASE MB 4.9 ng/mL (0-3.6)
[2021-09-11] MEDS ORDERED: PRED20TA PO (18:22)
[2021-09-11] MEDS ORDERED: IBUP-1969 PO (18:22)
[2021-09-11 18:36] VITALS: BP_SYST 137
[2021-09-11] MEDS: predniSONE 20 MG TABLET PO ONE (18:44)
== END 2021-09-11 18:36 | disposition home or self-care (01) ==
LOC: SED 13:57
DX: M48.00 Spinal stenosis, site unspecified (principal); I10 Essential (primary) hypertension; K21.9 Gastro-esophageal reflux disease without esophagitis; Z88.8 Allergy status to other drugs, medicaments and biological substances; Z79.899 Other long term (current) drug therapy
CPT/HCPCS: 36415; 72131; 76376; 80053; 82550; 82553; 85025; 93005; 99285; J7512

== ENCOUNTER 2022-02-28 18:06 | Emergency (ER) | payer OTHER, MEDICAID ==
[~2022-02-28] VITALS: Ht 157.5 cm; Wt 59.0 kg
[~2022-02-28 18:06] MED LIST changes: +AMLO5TAB92 PO; +FERR-69 PO; +HYDR-4038 PO; +IBUP-1969 PO; +LIP20 PO; +PRED20TA PO
[2022-02-28 18:43] VITALS: BP_SYST 153
--- NOTE | 2022-02-28 19:30 | NUR ---
ASSUMED CARE OF THIS PATIENT ACCOMPANIED BY HER GRAND DAUGHTER FOR DRY COUGH X2 MONTHS. PT DENIES FEVER AND CHILLS. SHE DENIES SOB AT THIS TIME. INFORMED PT ON PLAN OF CARE. WILL CONTINUE TO MONITOR. PT SAWB FOR COPVID AND SENT TO LAB.
[2022-02-28] MEDS ORDERED: PRED20TA PO (20:36)
[2022-02-28] MEDS ORDERED: PHEDM120 PO (20:36)
[2022-02-28] MEDS ORDERED: AZIT-93 PO (20:36)
--- NOTE | 2022-02-28 20:38 | NUR ---
PT SEEN AND EXAMINE BY DR. LAZARO
[2022-02-28 20:49] VITALS: BP_SYST 132
== END 2022-02-28 20:52 | disposition home or self-care (01) ==
LOC: SED 18:06
DX: J42 Unspecified chronic bronchitis (principal); R05.9 Cough, unspecified; K21.9 Gastro-esophageal reflux disease without esophagitis; I10 Essential (primary) hypertension; Z88.5 Allergy status to narcotic agent; Z88.6 Allergy status to analgesic agent; Z79.899 Other long term (current) drug therapy; Z20.822 Contact with and (suspected) exposure to COVID-19
CPT/HCPCS: 36415; 71046-TC; 99284

== ENCOUNTER 2024-01-07 14:07 | Emergency (ER) | payer OTHER, MEDICAID ==
[~2024-01-07] VITALS: Ht 152.4 cm; Wt 59.0 kg
[~2024-01-07 14:07] MED LIST changes: +AZIT-93 PO; -HYDR-4038 PO; +HYDR25TA86 PO; +PHEDM120 PO
[2024-01-07 14:39] VITALS: BP_SYST 135; PULSE 66; RESP 18; TEMP 98.3; O2SAT 98
[2024-01-07 14:54] LABS: BASOPHILS % (AUTO) 0.4 % (0.0-2.0); EOSINOPHILS % (AUTO) 0.8 % (0.0-4.0); HEMOGLOBIN 13.1 g/dL (12.0-16.0); LYMPHOCYTES # (AUTO) 2.8 K/uL (1.0-5.5); LYMPHOCYTES % (AUTO) 43.2 % (20.5-51.5); MEAN CORPUSCULAR HEMOGLOBIN 31 pg (27-31); MEAN CORPUSCULAR HGB CONC 35 % (32-36); MEAN CORPUSCULAR VOLUME 87 fL (79.0-98.0); MONOCYTES # (AUTO) 0.6 K/uL (0.0-1.0); NEUTROPHILS # (AUTO) 2.9 K/uL (1.8-7.7); NEUTROPHILS % (AUTO) 45.6 % (40.0-70.0); PLATELET COUNT (AUTO) 206 K/uL (130-430); RED BLOOD CELL COUNT(AUTO) 4.24 MIL/uL (4.2-6.2); RED CELL DISTRIBUTION WIDTH 13.8 % (9.0-15.0); WHITE BLOOD COUNT (AUTO) 6.4 K/uL (4.8-10.8)
[2024-01-07 15:04] LABS: ANION GAP 9 (5-15); CARBON DIOXIDE 30 mmol/L (23-29); CHLORIDE 94 mmol/L (98-107); CREATININE 1.19 mg/dL (0.55-1.30); GLUCOSE 120 mg/dL (74-106); POTASSIUM 3.3 mmol/L (3.5-5.1); SODIUM SERUM 133 mmol/L (136-145); UREA NITROGEN, BLOOD 9 mg/dL (8-21)
[2024-01-07] MEDS: NACL 0.9% 1,000 ML IV ONE (15:12)
[2024-01-07 15:30] LABS: BILIRUBIN,URINE NEGATIVE (NEGATIVE); CLARITY/URINE CLEAR (CLEAR); COLOR,URINE YELLOW (YELLOW); GLUCOSE,URINE NEGATIVE (NEGATIVE); KETONES,URINE NEGATIVE (NEGATIVE); LEUKOCYTE ESTERASE ,URINE NEGATIVE (NEGATIVE); NITRITE, URINE NEGATIVE (NEGATIVE); PROTEIN URINE 2+ (NEGATIVE); UROBILINOGEN,URINE 0.2 (0.2-1.0)
[2024-01-07 15:52] LABS: BLOOD, URINE TRACE (NEGATIVE)
[2024-01-07 15:57] LABS: COVID19 ANTIGEN SOFIA FIA NEGATIVE (NEGATIVE)
[2024-01-07 16:01] LABS: INFLUENZA TYPE A Negative (NEGATIVE); INFLUENZA TYPE B NEGATIVE (NEGATIVE)
[2024-01-07 16:25] LABS: BACTERIA,URINE FEW /HPF (None Seen); MUCUS,URINE None Seen /LPF (None Seen); RBC,URINE 0-3 /HPF (0-3); WBC,URINE 0-3 /HPF (0-3)
[2024-01-07 16:42] VITALS: BP_SYST 135; PULSE 66; RESP 18; TEMP 98.3; O2SAT 98
== END 2024-01-07 16:42 | disposition home or self-care (01) ==
LOC: SED 14:07
DX: A08.4 Viral intestinal infection, unspecified (principal); Z20.822 Contact with and (suspected) exposure to COVID-19; K21.9 Gastro-esophageal reflux disease without esophagitis; I10 Essential (primary) hypertension; Z88.6 Allergy status to analgesic agent; Z88.5 Allergy status to narcotic agent; Z79.899 Other long term (current) drug therapy; Z79.2 Long term (current) use of antibiotics
CPT/HCPCS: 99283; 96360; 87426; 80048; 81001; 85025; 36415; 87804 ×2; J7030; 81000; 81015